=== PATIENT | male | born 1965 | race Hispanic/Latino ===

== ENCOUNTER → 2017-01-27 | Outpatient (CLI) | payer OTHER ==
--- NOTE | 2017-01-27 12:38 | REP ---
Chest x-ray: Two views. History: Positive quantity or on test. . Comparison study: No comparison study . Findings: The lungs are well inflated and free of infiltrate. The pleural angles are sharp. The heart size is normal. Pulmonary vasculature is not increased. No significant bony abnormality is seen. Impression: Negative chest x-ray. Signed by oDn Paz MD 01/27/2017 12:30 P
== END ==
LOC: M RAD 08:46
PROVIDERS: ATTEND Surgery
DX: R76.11 Nonspecific reaction to tuberculin skin test without active tuberculosis (principal)